=== PATIENT | female | born 1960 | race Caucasian/White ===

== ENCOUNTER 2020-08-16 14:17 | Outpatient (REF) | payer BC, SELFPAY ==
[2020-08-16 15:27] LABS: Blood Urea Nitrogen 19 mg/dL (9-16); Estimated Glomerular Filt Rate > 60
== END 2020-08-16 14:18 | disposition home or self-care (01) ==
LOC: HO.LAB 14:17
PROVIDERS: PCP Internal Medicine; Visit Provider Psychiatry & Neurology Neurology
DX: G93.40 Encephalopathy, unspecified (principal)
CPT/HCPCS: 36415; 82565; 84520

== ENCOUNTER 2020-09-01 16:27 | Outpatient (REF) | payer BC, SELFPAY ==
--- NOTE | ~2020-09-01 | MR_ITS ---
EXAMINATION: MR BRAIN WITHOUT AND WITH CONTRAST CLINICAL INFORMATION: Encephalopathy. COMPARISON: None available. TECHNIQUE: Multiplanar, multisequence imaging of the brain was performed before and after the intravenous administration of 6.5 mL of Gadavist. Pulsation artifact degrades the postcontrast images. FINDINGS: There is no acute infarction, mass, hemorrhage, or extra-axial collection. No abnormal or unexpected intracranial enhancement is seen. The ventricles, sulci, and basilar cisterns are normal in size and configuration. A few nonspecific scattered foci of T2 hyperintensity are seen in the bilateral cerebral white matter. The brain parenchyma otherwise appears normal. No definite limbic abnormality is seen. The flow voids of the major intracranial arteries appear intact. The bones and extracranial soft tissues are within normal limits. A small amount of fluid is present within the right inferior mastoid. The orbital contents are unremarkable. MR/MR head/brain wo/w con IMPRESSION: No acute intracranial abnormality. Mild nonspecific T2 hyperintensity seen in the white matter. Allowing for motion artifact, no definite abnormal enhancement is seen.
== END 2020-09-01 16:28 | disposition home or self-care (01) ==
LOC: HO.MRI 16:27
PROVIDERS: Visit Provider Psychiatry & Neurology Neurology
DX: G93.40 Encephalopathy, unspecified (principal)
CPT/HCPCS: 70553; A9585

== ENCOUNTER 2021-03-30 16:17 | Outpatient (REF) | payer BC, SELFPAY ==
[2021-03-30 18:56] LABS: Erythrocyte Sedimentation Rate 8 MM/HR (0-20)
[2021-03-30 23:18] LABS: C Reactive Protein 0.56 mg/dL (< or = 0.50)
== END 2021-03-30 16:18 | disposition home or self-care (01) ==
LOC: HO.LAB 16:17
PROVIDERS: PCP Internal Medicine; Visit Provider Psychiatry & Neurology Neurology
DX: R51.9 Headache, unspecified (principal); G37.9 Demyelinating disease of central nervous system, unspecified
CPT/HCPCS: 36415; 85652; 86140

== ENCOUNTER 2021-04-11 13:35 | Outpatient (REF) | payer BC, SELFPAY | END 2021-04-11 13:36 | disposition home or self-care (01) | LOC: HO.MDS 13:35 | PROVIDERS: PCP Internal Medicine; Visit Provider Psychiatry & Neurology Neurology | DX: G37.9 Demyelinating disease of central nervous system, unspecified (principal) | CPT/HCPCS: 96365; J2930 ==

== ENCOUNTER 2021-04-12 13:52 | Outpatient (REF) | payer BC, SELFPAY | END 2021-04-12 13:53 | disposition home or self-care (01) | LOC: HO.MDS 13:52 | PROVIDERS: Visit Provider Internal Medicine | DX: G37.9 Demyelinating disease of central nervous system, unspecified (principal) | CPT/HCPCS: 96365; J2930 ==

== ENCOUNTER 2021-04-13 13:45 | Outpatient (REF) | payer BC, SELFPAY | END 2021-04-13 13:46 | disposition home or self-care (01) | LOC: HO.MDS 13:45 | PROVIDERS: PCP Internal Medicine; Visit Provider Psychiatry & Neurology Neurology | DX: G37.9 Demyelinating disease of central nervous system, unspecified (principal) | CPT/HCPCS: 96365; J2930 ==

== ENCOUNTER 2021-04-14 13:29 | Outpatient (REF) | payer BC, SELFPAY | END 2021-04-14 13:30 | disposition home or self-care (01) | LOC: HO.MDS 13:29 | PROVIDERS: PCP Internal Medicine; Visit Provider Psychiatry & Neurology Neurology | DX: G37.9 Demyelinating disease of central nervous system, unspecified (principal) | CPT/HCPCS: J2930 ==

== ENCOUNTER 2021-04-15 13:33 | Outpatient (REF) | payer BC, SELFPAY | END 2021-04-15 13:34 | disposition home or self-care (01) | LOC: HO.MDS 13:33 | PROVIDERS: PCP Internal Medicine; Visit Provider Psychiatry & Neurology Neurology | DX: G37.9 Demyelinating disease of central nervous system, unspecified (principal) | CPT/HCPCS: 96365; J2930 ==

== ENCOUNTER 2023-09-18 14:37 | Outpatient (REF) | payer BC, SELFPAY ==
[2023-09-18 14:41] VITALS: BP 148/64; PULSE 83; RESP 18; TEMP 37.1; O2SAT 96
[2023-09-18] MEDS: methylPREDNISolone Sod Succ 1,000 MG in 0.9 % Sodium Chloride 50 ML 66 MG IV (14:50)
== END 2023-09-18 14:38 | disposition home or self-care (01) ==
LOC: HO.MDS 14:37
PROVIDERS: Visit Provider Psychiatry & Neurology Neurology
DX: G37.9 Demyelinating disease of central nervous system, unspecified (principal)
CPT/HCPCS: 96365; J2930

== ENCOUNTER 2023-10-02 16:17 | Outpatient (REF) | payer BC, SELFPAY ==
--- NOTE | ~2023-10-02 | MR_ITS ---
EXAMINATION: MR BRAIN WITHOUT AND WITH CONTRAST CLINICAL INFORMATION: Demyelinating changes of the brain. COMPARISON: MRI brain 09/01/2020. TECHNIQUE: Multiplanar MR imaging of the brain was performed without and with contrast. A total of 7 mL Gadavist was utilized for this examination. FINDINGS: Postcontrast images reveal no abnormal intracranial mass or enhancement. There is no intracranial mass effect or midline shift. Lateral and third ventricles are normal. No hydrocephalus. Midline structures including the cervicomedullary junction are normal. No acute bone marrow signal changes. There are a few scattered nonspecific foci of T2 FLAIR signal hyperintensity within the periventricular white matter. No infratentorial white matter disease. No acute territorial infarct. There is a punctate focus of susceptibility artifact located within the subcortical white matter of the left frontal pole. Intracranial vascular flow voids are maintained. There is a right mastoid effusion. Trivial mucosal thickening primarily involving the ethmoid air cells. Globes and orbits are grossly symmetric. MR/MR head/brain wo/w con IMPRESSION: There are a few scattered chronic small vessel ischemic changes within the periventricular white matter. No convincing evidence of demyelinating disease. There is a chronic microhemorrhage located within subcortical white matter of the left frontal pole. No evidence of acute territorial infarct or hemorrhage. No abnormal intracranial mass or enhancement.
[2023-10-02] MEDS: gadobutroL 7.5 ML VIAL IVPUSH (17:20)
== END 2023-10-02 16:18 | disposition home or self-care (01) ==
LOC: HO.MRI 16:17
PROVIDERS: PCP Internal Medicine; Visit Provider Psychiatry & Neurology Neurology
DX: G37.9 Demyelinating disease of central nervous system, unspecified (principal)
CPT/HCPCS: 70553; A9585